=== PATIENT | female | born 1985 | race Hispanic/Latino ===

== ENCOUNTER 2023-03-03 11:29 | Day surgery (SDC) | payer OTHER, SELFPAY ==
--- NOTE | 2023-03-03 | PATH_ITS ---
[facility] Accession Number: [id number] No. of containers..01 Tissue . 01 Material submitted: . esophagus - DISTAL ESOPHAGUS . 01 Diagnosis: Distal Esophagus, Biopsy: Squamocolumnar junctional mucosa with mild chronic inflammation. Negative for specialized intestinal metaplasia on Alcian blue stain. Negative for dysplasia and malignancy. [facility] 03/16/2023 1112 Local . 01 Electronically signed: . Bronson Harris MD, PhD, Pathologist NPI- [id number] . 01 Gross description: . DISTAL ESOPHAGUS: Received in formalin is 2 fragment(s) of hurd, soft tissue measuring 0.2 x 0.2 x 0.1 cm to 0.2 x 0.1 x 0.1 cm submitted entirely in 1 cassette(s) /AAY 03/04/2023 0535 Local . 01 Microscopic: . An AB/PAS stain is performed to evaluate for specialized intestinal metaplasia and is negative for goblet cells. A control stain shows appropriate reactivity. . 01 Pathologist provided ICD-10: K21.9, K20.80 . 01 CPT . 899837, 624592 Specimen Comment: A courtesy copy of this report has been sent to [phone] Performed at: 01 [facility] [address] [place] [address] [address], [place], [place] [id number] MD Yan Briceno MD Phone: [phone]
[2023-03-03 11:46] VITALS: BMI 24.9
[2023-03-03 11:49] VITALS: BP 119/79; PULSE 78; RESP 17; TEMP 36.4; O2SAT 99
[2023-03-03] MEDS: LACTATED RINGERS 1,000 ML 42 ML IV (11:56)
--- NOTE | 2023-03-03 12:03 | PM.PREOP ---
Pre-operative Note COVID-19 COVID-19 status: Negative Interval Note History & Physical reviewed/Exam performed by Physician: Yes Changes to H&P: No ASA Class (for procedural sedation): II
--- NOTE | 2023-03-03 12:03 | PM.OP.EGD ---
Operative Date/Time/Diagnoses Date of procedure: 03/03/23 Pre-op diagnosis: See indication and findings Procedure & Clinicians Study performed: EGD Indications: GERD and weight loss Procedure Notes Procedure in detail: After informed consent was obtained the patient was placed in left lateral decubitus position. The video upper scope was placed into the oropharynx and with the patient's help swallowed into the esophagus. The esophagus stomach and duodenum were carefully examined. On withdrawal, retroflexed view the GE junction was performed. The scope was removed. The patient tolerated the procedure well. Blood loss none Complications none Sedation mac Findings 1. Additional appearance possibly consistent with Brown's esophagus however some of the landmarks had disappeared by the time the scope was being withdrawn. Probable sliding hiatal hernia. Biopsies were taken of a wondering GE junction to rule out Brown's. 2. Normal stomach duodenal bulb and sweep. Will be in touch regarding these biopsies but I suspect they will not show Brown's esophagus. She is doing well off anti secretory medication and just taking antacids. She should follow up with Dr. Yeboah should she continue to lose weight or have difficult to control reflux.
[2023-03-03 12:25] VITALS: BP 89/60; PULSE 73; RESP 24; TEMP 36.4; O2SAT 98
[2023-03-03 12:30] VITALS: BP 95/60; PULSE 65; RESP 20; O2SAT 100
[2023-03-03 12:35] VITALS: BP 101/68; PULSE 61; RESP 15; O2SAT 100
[2023-03-03 12:45] VITALS: BP 108/75; PULSE 60; RESP 12; TEMP 37.2; O2SAT 100
== END 2023-03-03 12:50 | disposition home or self-care (01) ==
PROVIDERS: PCP Family Medicine; Referring Provider Internal Medicine Gastroenterology; Visit Provider Internal Medicine Gastroenterology
PROC: 0DJ08ZZ Inspection of Upper Intestinal Tract, Via Natural or Artificial Opening Endoscopic (ICD-10-PCS; CPT 43235; principal; 2023-03-03 12:30)
DX: K21.9 Gastro-esophageal reflux disease without esophagitis (principal); R63.4 Abnormal weight loss; K29.50 Unspecified chronic gastritis without bleeding
CPT/HCPCS: 43239